=== PATIENT | female | born 1940 | race Caucasian/White ===

== ENCOUNTER 2017-11-12 13:53 | Emergency (ER) | payer OTHER, BC ==
[~2017-11-12] VITALS: Ht 157.5 cm; Wt 61.3 kg
[~2017-11-12 13:53] MED LIST: CALCIUM 500 +1 EACH PO; CENTRUM SILVER1 EAC3 PO; TOVIAZ4 MG PO
[2017-11-12 15:34] VITALS: BP 122/68
== END 2017-11-12 15:35 | disposition home or self-care (01) ==
LOC: EME 13:53
DX: S93.401A Sprain of unspecified ligament of right ankle, initial encounter (principal); V49.40XA Driver injured in collision with unspecified motor vehicles in traffic accident, initial encounter; Y92.410 Unspecified street and highway as the place of occurrence of the external cause
CPT/HCPCS: 73610; 99281; 99284

== ENCOUNTER → 2018-01-09 | Outpatient (CLI) | payer MEDICARE, BC | END | disposition home or self-care (01) | LOC: CDC 10:52 | DX: Z01.810 Encounter for preprocedural cardiovascular examination (principal); H25.11 Age-related nuclear cataract, right eye; R94.31 Abnormal electrocardiogram [ECG] [EKG] | CPT/HCPCS: 93000 ==